=== PATIENT | female | born 1995 | race Caucasian/White ===

== ENCOUNTER 2020-02-14 20:36 | Emergency (ER) | payer MEDICAID ==
[~2020-02-14] VITALS: Ht 165.1 cm; Wt 74.6 kg
[2020-02-14 20:58] VITALS: BP 122/75
[2020-02-14] MEDS ORDERED: KETOROLAC 30 MG/1 ML ONE (21:27)
[2020-02-14] MEDS ORDERED: METHOCARBAMOL 750 MG TABLET ONE (21:27)
[2020-02-14] MEDS ORDERED: METHOCARBAMOL 750 MG TABLET PO ONE (21:30)
[2020-02-14] MEDS ORDERED: KETOROLAC 30 MG/1 ML IM ONE (21:30)
[2020-02-14 21:39] LABS: BASOPHILS # (AUTO) 0.04 x10^3/uL (0-0.1); BASOPHILS % (AUTO) 1 % (0-1); EOSINOPHILS # (AUTO) 0.11 x10^3/uL (0-0.4); EOSINOPHILS % (AUTO) 3 % (1-7); LYMPHOCYTES # (AUTO) 1.91 x10^3/uL (1-3.4); LYMPHOCYTES % (AUTO) 51 % (22-44); MD NO; MEAN CORPUSCULAR HEMOGLOBIN 30.3 pg (27.0-34.8); MEAN CORPUSCULAR HGB CONC 34.1 g/dL (32.4-35.8); MEAN CORPUSCULAR VOLUME 88.9 fL (80-100); MEAN PLATELET VOLUME 7.7 fL (7.4-10.4); MONOCYTES # (AUTO) 0.29 x10^3/uL (0.2-0.8); MONOCYTES % (AUTO) 8 % (2-9); NEUTROPHILS # (AUTO) 1.42 x10^3/uL (1.8-6.8); NEUTROPHILS % (AUTO) 38 % (42-75); PLATELET COUNT 244 x10^3/uL (130-400); RED BLOOD COUNT 4.32 x10^6/uL (3.82-5.3); RED CELL DISTRIBUTION WIDTH 13.9 % (9.6-15.2)
[2020-02-14 21:52] LABS: ALBUMIN 3.8 g/dL (3.4-5.0); ANION GAP 5 mmol/L (5-15); CALCIUM 8.7 mg/dL (8.5-10.1); CHLORIDE 107 mmol/L (98-107)
[2020-02-14 21:55] LABS: CREATININE 0.87 mg/dL (0.55-1.02)
== END 2020-02-14 22:23 | disposition home or self-care (01) ==
LOC: ED 21:48
DX: M54.2 Cervicalgia (principal); R51 Headache; R42 Dizziness and giddiness
CPT/HCPCS: 36415; 80048; 82040; 84703; 85025; 96372; 99283; J1885

== ENCOUNTER 2020-05-05 15:08 | Emergency (ER) | payer MEDICAID ==
[~2020-05-05] VITALS: Ht 165.1 cm; Wt 73.6 kg
[2020-05-05 15:12] VITALS: BP 128/80
[2020-05-05 15:55] LABS: BASOPHILS # (AUTO) 0.03 x10^3/uL (0-0.1); BASOPHILS % (AUTO) 1 % (0-1); EOSINOPHILS # (AUTO) 0.16 x10^3/uL (0-0.4); EOSINOPHILS % (AUTO) 2 % (1-7); LYMPHOCYTES # (AUTO) 3.57 x10^3/uL (1-3.4); LYMPHOCYTES % (AUTO) 51 % (22-44); MD NO; MEAN CORPUSCULAR VOLUME 87.9 fL (80-100); MEAN PLATELET VOLUME 8.4 fL (7.4-10.4); MONOCYTES # (AUTO) 0.39 x10^3/uL (0.2-0.8); MONOCYTES % (AUTO) 6 % (2-9); NEUTROPHILS # (AUTO) 2.88 x10^3/uL (1.8-6.8); NEUTROPHILS % (AUTO) 41 % (42-75); PLATELET COUNT 278 x10^3/uL (130-400); RED BLOOD COUNT 4.26 x10^6/uL (3.82-5.3); RED CELL DISTRIBUTION WIDTH 13.1 % (9.6-15.2)
[2020-05-05 16:07] LABS: ALBUMIN 4.1 g/dL (3.4-5.0); ANION GAP 6 mmol/L (5-15); CALCIUM 8.5 mg/dL (8.5-10.1); CHLORIDE 108 mmol/L (98-107); CREATININE 0.83 mg/dL (0.55-1.02)
--- NOTE | 2020-05-05 16:37 | NUR ---
OCCUPATIONAL HEALTH PHYSICIAN: PT FROM LOBBY TO ROOM AT THIS TIME.
[2020-05-05] MEDS ORDERED: ACETAMINOPHEN 500 MG TABLET PO ONE (18:30)
[2020-05-05] MEDS ORDERED: PROCHLORPERAZINE 5 MG TABLET PO ONE (18:30)
[2020-05-05] MEDS ORDERED: KETOROLAC 30 MG/1 ML IM ONE (18:30)
[2020-05-05] MEDS ORDERED: PROCHLORPERAZINE 10MG TABLET ONE (18:31)
[2020-05-05] MEDS ORDERED: ACETAMINOPHEN 500 MG TABLET ONE (18:31)
[2020-05-05] MEDS ORDERED: KETOROLAC 60 MG/2 ML ONE (18:31)
== END 2020-05-05 19:18 | disposition home or self-care (01) ==
LOC: ED 19:12
DX: G43.109 Migraine with aura, not intractable, without status migrainosus (principal); R47.01 Aphasia; R42 Dizziness and giddiness; R53.1 Weakness; H53.149 Visual discomfort, unspecified; R05 Cough
CPT/HCPCS: 36415; 70450; 80048; 82040; 82962; 85025; 93005; 96372; 99285; J1885; Q0164

== ENCOUNTER 2020-08-20 16:25 | Emergency (ER) | payer OTHER, MEDICAID ==
[~2020-08-20] VITALS: Ht 167.6 cm; Wt 71.6 kg
[2020-08-20 16:41] VITALS: BP 126/61
[2020-08-20] MEDS ORDERED: IBUPROFEN 200 MG TABLET PO ONE (18:00)
[2020-08-20] MEDS ORDERED: DEXAMETHASONE 4 MG TABLET PO ONE (18:00)
[2020-08-20] MEDS ORDERED: IBUPROFEN 600 MG TABLET ONE (18:10)
[2020-08-20] MEDS ORDERED: DEXAMETHASONE 4 MG TABLET ONE (18:10)
--- NOTE | 2020-08-20 18:17 | NUR ---
PT IN BED NO DISTRESS
[2020-08-20 18:31] LABS: RAPID INFLUENZA A Negative (Negative); RAPID INFLUENZA B Negative (Negative)
== END 2020-08-20 18:59 | disposition home or self-care (01) ==
LOC: ED 18:06
DX: J06.9 Acute upper respiratory infection, unspecified (principal); Z20.828 Contact with and (suspected) exposure to other viral communicable diseases; G43.909 Migraine, unspecified, not intractable, without status migrainosus
CPT/HCPCS: 71045; 87081; 87400; 87635; 87880; 99284

== ENCOUNTER 2020-10-20 21:00 | Emergency (ER) | payer OTHER, MEDICAID ==
[~2020-10-20] VITALS: Ht 165.1 cm; Wt 70.0 kg
[2020-10-20 21:02] VITALS: BP 118/77
== END 2020-10-20 22:44 | disposition home or self-care (01) ==
LOC: ED 22:00
DX: R05 Cough (principal); R51.9 Headache, unspecified; R06.02 Shortness of breath; R07.89 Other chest pain; R09.81 Nasal congestion; Z88.9 Allergy status to unspecified drugs, medicaments and biological substances; Z88.2 Allergy status to sulfonamides
CPT/HCPCS: 71045; 99283

== ENCOUNTER 2021-01-17 11:10 | Emergency (ER) | payer OTHER, MEDICAID ==
[~2021-01-17] VITALS: Ht 167.6 cm; Wt 74.5 kg
--- NOTE | 2021-01-17 11:30 | NUR ---
PT AMBULATORY TO ED ROOM 25 W/ STEADY GAIT, ACCOMPANIED BY INTERVENTION ANALYST.
--- NOTE | 2021-01-17 11:48 | NUR ---
PT A&OX4, RESP EVEN & UNLABORED, SPEECH CLEAR, SKIN WNL. HAS BEEN SEEING [facility] WAREHOUSE RECORD CLERK; PT INSURANCE NOT CONTRACTED W/ WAREHOUSE RECORD CLERK NOW. PT C/O CP, PALPITATION, FAST HEART RATE. WORE HOLTER MONITOR "A COUPLE OF WEEKS AGO". WAS PRESCRIBED PROPRANOLOL, "BUT IT'S NOT THERE (AT THE PHARMACY)". CURRENTLY, "IT'S MELLOWED DOWN", LOCATION: [facility]. DENIES N/V. SLIGHT LIGHTHEADEDNESS. NO MED TAKEN FOR SX. LAST ORAL INTAKE: 829. LMP: 12/30/20. SEXUALLY ACTIVE, SPOUSE HAD VASECTOMY. LAST BM: TODAY
[2021-01-17 12:45] LABS: BASOPHILS % (AUTO) 1 % (0-1); EOSINOPHILS % (AUTO) 4 % (1-7); LYMPHOCYTES % (AUTO) 35 % (22-44); MEAN CORPUSCULAR HGB CONC 33.9 g/dL (32.4-35.8); MEAN PLATELET VOLUME 7.9 fL (7.4-10.4); MONOCYTES % (AUTO) 6 % (2-9); NEUTROPHILS % (AUTO) 54 % (42-75); PLATELET COUNT 269 x10^3/uL (130-400); RED CELL DISTRIBUTION WIDTH 14.3 % (9.6-15.2)
[2021-01-17 12:53] LABS: MD NO
[2021-01-17 12:55] LABS: CHLORIDE 107 mmol/L (98-107)
--- NOTE | 2021-01-17 12:55 | NUR ---
SITTING QUIETLY ON GURNEY, USING OWN CELL PHONE.
[2021-01-17 13:10] LABS: ANION GAP 5 mmol/L (5-15); CALCIUM 9.2 mg/dL (8.5-10.1); CREATININE 0.75 mg/dL (0.55-1.02)
--- NOTE | 2021-01-17 13:11 | NUR ---
REPORT FROM MICHELLE HIRSCH.
[2021-01-17 13:46] VITALS: BP 106/64
== END 2021-01-17 13:48 | disposition home or self-care (01) ==
LOC: ED 13:45
DX: I47.1 Supraventricular tachycardia (principal)
CPT/HCPCS: 36415; 80048; 84443; 84703; 85025; 93005; 99284

== ENCOUNTER 2021-02-14 20:01 | Emergency (ER) | payer OTHER, MEDICAID ==
[~2021-02-14] VITALS: Ht 165.1 cm; Wt 73.7 kg
[2021-02-14 21:02] LABS: BASOPHILS % (AUTO) 1 % (0-1); EOSINOPHILS % (AUTO) 5 % (1-7); LYMPHOCYTES % (AUTO) 50 % (22-44); MD NO; MEAN CORPUSCULAR HGB CONC 33.8 g/dL (32.4-35.8); MEAN PLATELET VOLUME 7.6 fL (7.4-10.4); MONOCYTES % (AUTO) 6 % (2-9); NEUTROPHILS % (AUTO) 39 % (42-75); PLATELET COUNT 282 x10^3/uL (130-400); RED BLOOD COUNT 4.39 x10^6/uL (3.82-5.3); RED CELL DISTRIBUTION WIDTH 14.2 % (9.6-15.2)
[2021-02-14 21:15] LABS: ALBUMIN 4.1 g/dL (3.4-5.0); ANION GAP 4 mmol/L (5-15); CHLORIDE 110 mmol/L (98-107)
[2021-02-14 21:21] LABS: ALANINE AMINOTRANSFERASE 26 U/L (12-78); ALKALINE PHOSPHATASE 59 U/L (45-117); BILIRUBIN,TOTAL 0.4 mg/dL (0.2-1.0); CREATININE 0.79 mg/dL (0.55-1.02); TOTAL PROTEIN 8.2 g/dL (6.4-8.2)
--- NOTE | 2021-02-14 22:09 | NUR ---
Pt with complaints of L kidney pain that has gotten worse over the last 3 days. Pt was taking macrobid and completed abx for UTI. Pt believes that UTI has not improved, connected to BP and O2 monitors, VSS, A&O x4, ambulatory with steady gait. NADN.
[2021-02-14 22:41] LABS: MICROSCOPIC NOT IND
--- NOTE | 2021-02-14 22:57 | NUR ---
RECEIVED REPORT FROM JOYCELYN GOODEN AND JOYCELYN SUAREZ TO ASSUME CARE OF PT. AT THIS TIME. CHART UP FOR RECHECK BY ERP.
--- NOTE | 2021-02-14 23:24 | NUR ---
PT. AWARE OF PLAN FOR D/C AND AGREEABLE. PT. CURRENTLY GETTING DRESSED. AWAITING PAPERWORK.
[2021-02-14 23:58] VITALS: BP 104/50
== END 2021-02-14 23:59 | disposition home or self-care (01) ==
LOC: ED 22:24
DX: N80.9 Endometriosis, unspecified (principal); R30.0 Dysuria; R39.15 Urgency of urination
CPT/HCPCS: 36415; 80053; 81003; 84703; 85025; 99283

== ENCOUNTER 2021-03-01 20:55 | Emergency (ER) | payer OTHER ==
[~2021-03-01] VITALS: Ht 165.1 cm; Wt 72.0 kg
--- NOTE | 2021-03-01 21:43 | NUR ---
checkman: Pt from room to lobby at this time. Steady upon ambulation.
[2021-03-01] MEDS ORDERED: ACETAMINOPHEN 500 MG TABLET ONE (22:22)
[2021-03-01] MEDS ORDERED: IBUPROFEN 200 MG TABLET ONE (22:22)
[2021-03-01 22:27] LABS: BASOPHILS % (AUTO) 1 % (0-1); EOSINOPHILS % (AUTO) 5 % (1-7); LYMPHOCYTES % (AUTO) 32 % (22-44); MEAN CORPUSCULAR HEMOGLOBIN 30.3 pg (27.0-34.8); MEAN CORPUSCULAR HGB CONC 34.4 g/dL (32.4-35.8); MEAN PLATELET VOLUME 7.8 fL (7.4-10.4); MONOCYTES % (AUTO) 7 % (2-9); NEUTROPHILS % (AUTO) 55 % (42-75); PLATELET COUNT 246 x10^3/uL (130-400); RED BLOOD COUNT 4.19 x10^6/uL (3.82-5.3); RED CELL DISTRIBUTION WIDTH 14.5 % (9.6-15.2)
[2021-03-01 22:29] LABS: MICROSCOPIC AUTO
[2021-03-01] MEDS ORDERED: ACETAMINOPHEN 500 MG TABLET PO ONE (22:30)
[2021-03-01] MEDS ORDERED: IBUPROFEN 200 MG TABLET PO ONE (22:30)
[2021-03-01 22:38] LABS: ALANINE AMINOTRANSFERASE 22 U/L (12-78); ALBUMIN 3.5 g/dL (3.4-5.0); ANION GAP 6 mmol/L (5-15); CALCIUM 8.7 mg/dL (8.5-10.1); CHLORIDE 105 mmol/L (98-107); CREATININE 0.89 mg/dL (0.55-1.02)
[2021-03-01 22:42] LABS: ALKALINE PHOSPHATASE 58 U/L (45-117); BILIRUBIN,TOTAL 0.4 mg/dL (0.2-1.0); TOTAL PROTEIN 7.9 g/dL (6.4-8.2)
[2021-03-01 22:47] LABS: MD NO
[2021-03-01] MEDS ORDERED: CEFDINIR 300 MG CAPSULE ONE (23:28)
[2021-03-01] MEDS ORDERED: CEFDINIR 300 MG CAPSULE PO ONE (23:30)
[2021-03-01 23:34] VITALS: BP 118/74
== END 2021-03-02 | disposition home or self-care (01) ==
LOC: ED 22:06
DX: N30.00 Acute cystitis without hematuria (principal); Z20.822 Contact with and (suspected) exposure to COVID-19
CPT/HCPCS: 36415; 80053; 81001; 84703; 85025; 87086; 99284; U0003; U0005

== ENCOUNTER 2021-04-03 20:50 | Emergency (ER) | payer OTHER ==
[~2021-04-03] VITALS: Ht 167.6 cm; Wt 74.5 kg
[2021-04-03 21:21] LABS: MICROSCOPIC INDICATED
--- NOTE | 2021-04-03 21:28 | NUR ---
GENERAL OFFICE CLERK: PT TO ROOM FROM LOBBY
[2021-04-03 22:29] LABS: MEAN CORPUSCULAR HGB CONC 33.9 g/dL (32.4-35.8); MEAN PLATELET VOLUME 8.1 fL (7.4-10.4); PLATELET COUNT 243 x10^3/uL (130-400); RED BLOOD COUNT 4.06 x10^6/uL (3.82-5.3); RED CELL DISTRIBUTION WIDTH 13.8 % (9.6-15.2)
--- NOTE | 2021-04-03 22:33 | NUR ---
PT HAS HX OF UTI, PT THINKS SHE MIGHT HAVE A KIDNEY INFECTION NOW. PT A/OX 4 WITH UNLABORED BREATHING.
[2021-04-03 22:35] LABS: ALANINE AMINOTRANSFERASE 20 U/L (12-78); ALBUMIN 3.5 g/dL (3.4-5.0); ANION GAP 5 mmol/L (5-15); CALCIUM 8.3 mg/dL (8.5-10.1); CHLORIDE 108 mmol/L (98-107)
[2021-04-03 22:38] LABS: ALKALINE PHOSPHATASE 60 U/L (45-117); BILIRUBIN,TOTAL 0.3 mg/dL (0.2-1.0); TOTAL PROTEIN 7.3 g/dL (6.4-8.2)
--- NOTE | 2021-04-03 22:52 | NUR ---
Report from JOYCELYN Urbano. Pt waiting for ultrasound results.
--- NOTE | 2021-04-03 23:34 | NUR ---
Ultrasound being done now. This RN will allied health instructor during trans/vaginal
[2021-04-03 23:55] VITALS: BP 100/53
--- NOTE | 2021-04-03 23:55 | NUR ---
NIKOS RN: US IN PROGRESS. THIS RN AT BEDSIDE THROUGHOUT. PT TOLERATED WELL.
[2021-04-04 00:33] LABS: ANISOCYTOSIS 1+; BAND#(MANUAL) 0.07 x10^3/uL; BANDS%(MANUAL) 1 % (0-7); EOS#(MANUAL) 0.55 x10^3/uL (0.0-0.4); EOS% (MANUAL) 8 % (1-7); LYMPH#(MANUAL) 4.35 x10^3/uL (1-3.4); LYMPHS% (MANUAL) 63 % (22-44); MONOS#(MANUAL) 0.28 x10^3/uL (0.3-2.7); MONOS% (MANUAL) 4 % (2-9); SEG#(MANUAL) 1.66 x10^3/uL (1.8-6.8); SEGS% (MANUAL) 24 % (42-75)
[2021-04-04 00:34] LABS: <PLATELET ESTIMATE> ADEQUATE; <PLT MORPHOLOGY> NORMAL PLT MORPH; MICROCYTOSIS 1+
--- NOTE | 2021-04-04 02:40 | NUR ---
Patient given discharge instructions and they have confirmed that they understand the instructions. Patient ambulatory with steady gait.
== END 2021-04-04 02:42 | disposition home or self-care (01) ==
LOC: ED 21:48
DX: N80.1 Endometriosis of ovary (principal); N23 Unspecified renal colic; R11.2 Nausea with vomiting, unspecified; G43.909 Migraine, unspecified, not intractable, without status migrainosus
CPT/HCPCS: 36415; 76770; 76830; 80053; 81001; 83690; 85025; 87077; 87086; 87186; 99285

== ENCOUNTER 2021-05-08 13:26 | Emergency (ER) | payer OTHER ==
[~2021-05-08] VITALS: Ht 167.6 cm; Wt 72.8 kg
--- NOTE | 2021-05-08 14:13 | NUR ---
patient to room from lobby
[2021-05-08] MEDS ORDERED: SODIUM CHLORIDE FLUSH 10ML SYR IVF ONE (14:30)
[2021-05-08] MEDS ORDERED: SODIUM CHLORIDE 0.9% 1,000ML IVBOLUS ONE (14:30)
[2021-05-08] MEDS ORDERED: IBUPROFEN 200 MG TABLET PO ONE (14:30)
[2021-05-08] MEDS ORDERED: IBUPROFEN 200 MG TABLET ONE (14:42)
--- NOTE | 2021-05-08 14:51 | NUR ---
REPORT RECEIVED FROM CEFERINO HIRSCH
--- NOTE | 2021-05-08 15:08 | NUR ---
PIV placed, fluids infusing. pt a&o, resps even and unlabored, nadn. awiaint cxr results and dispo
[2021-05-08 15:12] LABS: BASOPHILS % (AUTO) 1 % (0-1); EOSINOPHILS % (AUTO) 1 % (1-7); LYMPHOCYTES % (AUTO) 19 % (22-44); MEAN CORPUSCULAR HEMOGLOBIN 30.2 pg (27.0-34.8); MEAN CORPUSCULAR HGB CONC 34.3 g/dL (32.4-35.8); MEAN PLATELET VOLUME 8.3 fL (7.4-10.4); MONOCYTES % (AUTO) 10 % (2-9); NEUTROPHILS % (AUTO) 71 % (42-75); PLATELET COUNT 200 x10^3/uL (130-400); RED BLOOD COUNT 4.44 x10^6/uL (3.82-5.3)
[2021-05-08 15:13] LABS: ALBUMIN 4.2 g/dL (3.4-5.0); ANION GAP 7 mmol/L (5-15); CALCIUM 8.6 mg/dL (8.5-10.1); CHLORIDE 105 mmol/L (98-107); CREATININE 0.78 mg/dL (0.55-1.02)
[2021-05-08 15:19] VITALS: BP 110/64
--- NOTE | 2021-05-08 16:15 | NUR ---
pt educated on dc, verbalized understanding. ambulatory to dc desk with steady gait.
== END 2021-05-08 16:24 | disposition home or self-care (01) ==
LOC: ED 13:29
DX: J06.9 Acute upper respiratory infection, unspecified (principal); R07.89 Other chest pain; R00.0 Tachycardia, unspecified
CPT/HCPCS: 36415; 71045; 80048; 82040; 85025; 93005; 96360; 96361; 99285; J7030

== ENCOUNTER 2021-05-11 05:44 | Emergency (ER) | payer OTHER ==
[~2021-05-11] VITALS: Ht 167.6 cm; Wt 72.3 kg
--- NOTE | 2021-05-11 05:53 | NUR ---
PT BIBA FOR POSITIVE COVID TEST ON SATURDAY, PT STATED THAT SINCE THEN SHE HAS BEEN FEELING WORSE AND WORSE, PT STATES SHE HAD A REALLY HIGH FEVER LAST NIGHT AND WOKE UP AND TOOK 1G OF TYLENOL, PT CURRENTLY NOT FEBRILE, OXYGEN SATURATION AT 96% ON ROOM AIR, MD AT BEDSIDE TO DISCUSS POC
[2021-05-11] MEDS ORDERED: KETOROLAC 30 MG/1 ML IVPush ONE (06:00)
[2021-05-11] MEDS ORDERED: SODIUM CHLORIDE 0.9% 1,000ML IVBOLUS ONE (06:00)
[2021-05-11] MEDS ORDERED: KETOROLAC 30 MG/1 ML ONE (06:19)
[2021-05-11 06:41] LABS: BASOPHILS % (AUTO) 0 % (0-1); EOSINOPHILS % (AUTO) 1 % (1-7); LYMPHOCYTES % (AUTO) 42 % (22-44); MEAN CORPUSCULAR HGB CONC 34.4 g/dL (32.4-35.8); MEAN PLATELET VOLUME 8.2 fL (7.4-10.4); MONOCYTES % (AUTO) 6 % (2-9); NEUTROPHILS % (AUTO) 51 % (42-75); PLATELET COUNT 158 x10^3/uL (130-400); RED BLOOD COUNT 4.03 x10^6/uL (3.82-5.3); RED CELL DISTRIBUTION WIDTH 14.1 % (9.6-15.2)
--- NOTE | 2021-05-11 06:50 | NUR ---
REPORT FROM DIVINE, ASSUME CARE OF PT AT THIS TIME. AWAITING RESULTS OF LABS AND XR. VSS. CALL LIGHT WITHIN REACH.
[2021-05-11 06:56] LABS: ALANINE AMINOTRANSFERASE 21 U/L (12-78); ALBUMIN 3.4 g/dL (3.4-5.0); ANION GAP 8 mmol/L (5-15); CHLORIDE 108 mmol/L (98-107); CREATININE 0.61 mg/dL (0.55-1.02)
[2021-05-11 07:02] LABS: ALKALINE PHOSPHATASE 46 U/L (45-117); BILIRUBIN,TOTAL 0.3 mg/dL (0.2-1.0); TOTAL PROTEIN 7.3 g/dL (6.4-8.2)
--- NOTE | 2021-05-11 08:10 | NUR ---
VSS/UPDATED IN COMPUTER. ALL RESULTS BACK, PT FOR RECHECK.
[2021-05-11 08:17] VITALS: BP 99/60
== END 2021-05-11 09:18 | disposition home or self-care (01) ==
LOC: ED 05:53
DX: U07.1 COVID-19 (principal); B34.9 Viral infection, unspecified; R50.9 Fever, unspecified; R94.31 Abnormal electrocardiogram [ECG] [EKG]
CPT/HCPCS: 36415; 71045; 80053; 84145; 85025; 86140; 93005; 96361; 96374; 99285; J1885; J7030

== ENCOUNTER 2021-05-13 19:09 | Emergency (ER) | payer OTHER ==
[~2021-05-13] VITALS: Ht 167.6 cm; Wt 72.3 kg
--- NOTE | 2021-05-13 19:37 | NUR ---
BOW MAKER PRODUCTION: EKG DONE IN [facility].
[2021-05-13 20:16] LABS: BASOPHILS % (AUTO) 0 % (0-1); EOSINOPHILS % (AUTO) 1 % (1-7); LYMPHOCYTES % (AUTO) 41 % (22-44); MEAN CORPUSCULAR HEMOGLOBIN 29.9 pg (27.0-34.8); MEAN CORPUSCULAR HGB CONC 34.1 g/dL (32.4-35.8); MEAN PLATELET VOLUME 8.1 fL (7.4-10.4); MONOCYTES % (AUTO) 6 % (2-9); NEUTROPHILS % (AUTO) 52 % (42-75); PLATELET COUNT 140 x10^3/uL (130-400); RED BLOOD COUNT 4.04 x10^6/uL (3.82-5.3); RED CELL DISTRIBUTION WIDTH 14.2 % (9.6-15.2)
[2021-05-13 20:25] LABS: ALBUMIN 3.4 g/dL (3.4-5.0); ANION GAP 8 mmol/L (5-15); CALCIUM 8.5 mg/dL (8.5-10.1); CHLORIDE 107 mmol/L (98-107)
[2021-05-13 20:33] LABS: CREATININE 0.67 mg/dL (0.55-1.02)
[2021-05-13 20:34] LABS: ALANINE AMINOTRANSFERASE 43 U/L (12-78); ALKALINE PHOSPHATASE 47 U/L (45-117); BILIRUBIN,TOTAL 0.3 mg/dL (0.2-1.0); TOTAL PROTEIN 7.8 g/dL (6.4-8.2)
[2021-05-14] MEDS ORDERED: PROMETHAZINE 25 MG/ML, 1ML ONE (00:41)
[2021-05-14 00:47] VITALS: BP 120/76
[2021-05-14] MEDS ORDERED: PROMETHAZINE 25 MG/ML, 1ML IM ONE (01:00)
== END 2021-05-14 01:12 | disposition home or self-care (01) ==
LOC: ED 20:00
DX: U07.1 COVID-19 (principal); J06.9 Acute upper respiratory infection, unspecified; R11.0 Nausea
CPT/HCPCS: 36415; 71045; 80053; 84703; 85025; 93005; 99285

== ENCOUNTER 2021-05-15 17:01 | Emergency (ER) | payer OTHER ==
[~2021-05-15] VITALS: Ht 160 cm; Wt 55.0 kg
[2021-05-15] MEDS ORDERED: ONDANSETRON ODT 4 MG PO ONE (18:00)
[2021-05-15 18:21] LABS: BASOPHILS % (AUTO) 0 % (0-1); EOSINOPHILS % (AUTO) 0 % (1-7); LYMPHOCYTES % (AUTO) 44 % (22-44); MEAN CORPUSCULAR HEMOGLOBIN 29.4 pg (27.0-34.8); MEAN CORPUSCULAR HGB CONC 33.8 g/dL (32.4-35.8); MEAN PLATELET VOLUME 8.2 fL (7.4-10.4); MONOCYTES % (AUTO) 4 % (2-9); NEUTROPHILS % (AUTO) 51 % (42-75); PLATELET COUNT 170 x10^3/uL (130-400); RED BLOOD COUNT 4.37 x10^6/uL (3.82-5.3); RED CELL DISTRIBUTION WIDTH 14.1 % (9.6-15.2)
[2021-05-15 18:23] LABS: ALANINE AMINOTRANSFERASE 70 U/L (12-78); ALBUMIN 3.5 g/dL (3.4-5.0); ANION GAP 7 mmol/L (5-15); CALCIUM 8.8 mg/dL (8.5-10.1); CHLORIDE 107 mmol/L (98-107); CREATININE 0.77 mg/dL (0.55-1.02)
[2021-05-15 18:27] LABS: ALKALINE PHOSPHATASE 56 U/L (45-117); BILIRUBIN,TOTAL 0.4 mg/dL (0.2-1.0); TOTAL PROTEIN 8.2 g/dL (6.4-8.2)
[2021-05-15] MEDS ORDERED: ONDANSETRON ODT 4 MG ONE (18:39)
--- NOTE | 2021-05-15 21:00 | NUR ---
vacuum frame operator: patient to room from lobby.
[2021-05-15 21:07] VITALS: BP 115/67
[2021-05-15] MEDS ORDERED: SODIUM CHLORIDE 0.9% 1,000ML IVBOLUS ONE (21:30)
[2021-05-15] MEDS ORDERED: KETOROLAC 30 MG/1 ML ONE (21:40)
[2021-05-15] MEDS ORDERED: KETOROLAC 15 MG/1ML IVPush ONE (22:00)
--- NOTE | 2021-05-15 22:28 | NUR ---
Patient/Caregiver given discharge instructions and they have confirmed that they understand the instructions. Patient ambulatory with steady gait. NAD, all questions answered appropriately, denies additional needs at this time. No personal belongings left in room after discharge.
== END 2021-05-15 22:30 | disposition home or self-care (01) ==
LOC: ED 21:11
DX: U07.1 COVID-19 (principal); J12.82 Pneumonia due to coronavirus disease 2019; R06.00 Dyspnea, unspecified; R06.02 Shortness of breath
CPT/HCPCS: 36415; 71045; 80053; 84703; 85025; 96361; 96374; 99284; J1885; J7030; Q0162